=== PATIENT | female | born 1995 | race African-American/Black ===

== ENCOUNTER 2018-03-17 23:56 | Emergency (ER) | payer MEDICAID ==
[~2018-03-17] VITALS: Ht 152.4 cm; Wt 41.8 kg
[~2018-03-17 23:56] MED LIST: FERR-89 PO
[2018-03-18] MEDS ORDERED: DEPOP150I IM (00:10)
[2018-03-18] MEDS ORDERED: KETOROLAC TROMETHAMINE 60 MG/2 ML VIAL IM ONE (00:45)
[2018-03-18 01:29] VITALS: BP 122/74
== END 2018-03-18 01:30 | disposition home or self-care (01) ==
LOC: EMS 23:56
DX: H92.01 Otalgia, right ear (principal)
CPT/HCPCS: 96372; 99283; J1885

== ENCOUNTER 2018-05-19 15:52 | Emergency (ER) | payer SELFPAY ==
[~2018-05-19] VITALS: Ht 152.4 cm; Wt 43.2 kg
[~2018-05-19 15:52] MED LIST changes: +DEPOP150I IM; -FERR-89 PO
[2018-05-19 17:48] VITALS: BP 116/72
== END 2018-05-19 18:24 | disposition home or self-care (01) ==
LOC: EMS 15:53
DX: S46.912A Strain of unspecified muscle, fascia and tendon at shoulder and upper arm level, left arm, initial encounter (principal); V43.52XA Car driver injured in collision with other type car in traffic accident, initial encounter; Y93.89 Activity, other specified; Y92.89 Other specified places as the place of occurrence of the external cause; Y99.8 Other external cause status

== ENCOUNTER 2019-02-05 23:13 | Emergency (ER) | payer MEDICAID, OTHER ==
[~2019-02-05] VITALS: Ht 152.4 cm; Wt 40.9 kg
[2019-02-06] MEDS ORDERED: ACETAMINOPHEN 500 MG TABLET PO ONE (00:45)
[2019-02-06 03:45] VITALS: BP 124/68
== END 2019-02-06 04:00 | disposition home or self-care (01) ==
LOC: EMS 23:14
DX: S20.212A Contusion of left front wall of thorax, initial encounter (principal); F17.290 Nicotine dependence, other tobacco product, uncomplicated; Y04.0XXA Assault by unarmed brawl or fight, initial encounter; Y93.89 Activity, other specified; Y92.89 Other specified places as the place of occurrence of the external cause; Y99.8 Other external cause status
CPT/HCPCS: 71250; 99406

== ENCOUNTER 2020-10-30 23:57 | Emergency (ER) | payer OTHER ==
[~2020-10-30] VITALS: Ht 157.5 cm; Wt 50.0 kg
[~2020-10-30 23:57] MED LIST changes: -DEPOP150I IM; +SERT-158 PO
[2020-10-31 02:25] VITALS: BP 126/62
[2020-10-31] MEDS ORDERED: IBUPROFEN 600 MG TABLET PO ONE (02:45)
== END 2020-10-31 02:50 | disposition home or self-care (01) ==
LOC: EMS 23:58
DX: S13.4XXA Sprain of ligaments of cervical spine, initial encounter (principal); F32.9 Major depressive disorder, single episode, unspecified; F12.90 Cannabis use, unspecified, uncomplicated; Y04.0XXA Assault by unarmed brawl or fight, initial encounter; Y93.89 Activity, other specified; Y92.89 Other specified places as the place of occurrence of the external cause; Y99.8 Other external cause status
CPT/HCPCS: 99282; Z7502; Z7610

== ENCOUNTER 2021-05-14 08:37 | Emergency (ER) | payer OTHER ==
[~2021-05-14] VITALS: Ht 152.4 cm; Wt 42.7 kg
[2021-05-14] MEDS ORDERED: ACETAMINOPHEN 500 MG TABLET PO ONE (09:30)
[2021-05-14] MEDS ORDERED: LIDOCAINE 5% TRANSDERMAL PATCH TD ONE (09:30)
[2021-05-14] MEDS ORDERED: IBUPROFEN 600 MG TABLET PO ONE (09:30)
[2021-05-14 11:52] VITALS: BP 125/81
== END 2021-05-14 12:04 | disposition home or self-care (01) ==
LOC: EMS 08:42
DX: S39.012A Strain of muscle, fascia and tendon of lower back, initial encounter (principal); F32.9 Major depressive disorder, single episode, unspecified; F12.90 Cannabis use, unspecified, uncomplicated; V43.52XA Car driver injured in collision with other type car in traffic accident, initial encounter; Y93.89 Activity, other specified; Y92.89 Other specified places as the place of occurrence of the external cause; Y99.8 Other external cause status
CPT/HCPCS: 72131; 99284

== ENCOUNTER 2021-06-12 22:42 | Emergency (ER) | payer OTHER ==
[~2021-06-12] VITALS: Ht 152.4 cm; Wt 40.0 kg
[2021-06-12 22:57] VITALS: BP 122/80
[2021-06-13 01:34] LABS: COVID AG,FIA SOURCE NASOPHARYNGEAL
[2021-06-13 01:57] LABS: INFLUENZA TYPE A NEGATIVE FOR TYPE A (NEGATIVE); INFLUENZA TYPE B NEGATIVE FOR TYPE B (NEGATIVE)
== END 2021-06-13 01:38 | disposition home or self-care (01) ==
LOC: EMS 22:43
DX: U07.1 COVID-19 (principal); F32.9 Major depressive disorder, single episode, unspecified; F12.90 Cannabis use, unspecified, uncomplicated
CPT/HCPCS: 87426; 87804; 99283; U0003

== ENCOUNTER 2023-04-25 01:39 | Emergency (ER) | payer OTHER ==
[~2023-04-25] VITALS: Ht 152.4 cm; Wt 52.3 kg
[2023-04-25 01:47] VITALS: TEMP 98
[2023-04-25 02:11] LABS: COVID AG,FIA SOURCE NASAL SWAB
[2023-04-25 02:19] LABS: SARS-COV2 (COVID) ANTIGEN,FIA Negative (Negative)
[2023-04-25 02:20] LABS: INFLUENZA TYPE A NEGATIVE FOR TYPE A (NEGATIVE); INFLUENZA TYPE B NEGATIVE FOR TYPE B (NEGATIVE)
[2023-04-25] MEDS ORDERED: KETOROLAC TROMETHAMINE 30 MG/ML VIAL IM ONE (02:45)
[2023-04-25] MEDS ORDERED: AMOX TR/POT CLAV 875 MG/125 MG TABLET PO ONE (02:45)
[2023-04-25] MEDS ORDERED: ONDANSETRON HCL 4 MG TABLET PO ONE (02:45)
[2023-04-25] MEDS ORDERED: ACET-3385 PO (02:47)
[2023-04-25] MEDS ORDERED: IBUP-1506 PO (02:47)
[2023-04-25] MEDS ORDERED: AMOX1TAB16 PO (02:47)
[2023-04-25] MEDS ORDERED: ONDA-104 PO (02:47)
[2023-04-25 03:15] VITALS: BP 118/85; PULSE 74; RESP 16
== END 2023-04-25 03:16 | disposition home or self-care (01) ==
LOC: EMS 01:43
DX: H66.91 Otitis media, unspecified, right ear (principal); F32.A Depression, unspecified; F12.90 Cannabis use, unspecified, uncomplicated; Z20.822 Contact with and (suspected) exposure to COVID-19
CPT/HCPCS: 99283; 87426; 87804; 96372; J1885; Q0162